=== PATIENT | female | born 1980 | race Caucasian/White ===

== ENCOUNTER 2017-11-25 02:29 | Emergency (ER) | payer MEDICARE, OTHER ==
[2017-11-25 02:30] VITALS: BMI 19.7
--- NOTE | 2017-11-25 03:19 | C.PDOC ---
History Of Present Illness 37 year old female is brought to the ED by EMS for a psych evaluation. Patient has a flight of ideas while in the ED, patient makes disconnected statements like " I have genital warts" , " I need a hydraulic barker operator" , and starts asking incoherent questions " are you a licensed physician by the sate ?" . Patient appears to be paranoid, uncooperative with further history taking. Patient is only speaking in low monotone voice denies current auditory, visual hallucinations, SI/HI. Patient states she wishes to leave. Chief Complaint (Nursing): Psychiatric Evaluation History Per: Patient History/Exam Limitations: clinical condition Onset/Duration Of Symptoms: Days Current Symptoms Are (Timing): Still Present Suicide/Self Injury Attempted (Context): None Modifying Factor(s): None Severity: None Associated Symptoms: Paranoia. denies: Depression, Suicidal Thoughts, Suicidal Plan Recent travel outside of the [place]: No Additional History Per: Patient Past Medical History Reviewed: Historical Data, Nursing Documentation, Vital Signs Vital Signs: Last Vital Signs Temp 98.1 F 11/26/17 00:10 Pulse 93 H 11/26/17 00:10 Resp 18 11/26/17 00:10 BP 104/66 11/26/17 00:10 Pulse Ox 97 11/26/17 00:10 - Medical History PMH: No Chronic Diseases Surgical History: No Surg Hx Family History: States: Unknown Family Hx - Social History Hx Alcohol Use: No Hx Substance Use: Yes - Immunization History Hx Tetanus Toxoid Vaccination: No Hx Influenza Vaccination: No Hx Pneumococcal Vaccination: No Review Of Systems Review Of Systems: ROS cannot be obtained secondary to pt's inabilty to answer questions. Physical Exam - Physical Exam Appears: Non-toxic, Other (bizarre affect) Skin: Normal Color, Warm, Dry Head: Atraumatic, Normacephalic Eye(s): bilateral: Normal Inspection Neck: Normal ROM, Supple Chest: Deformity Cardiovascular: Rhythm Regular, No Murmur Respiratory: Normal Breath Sounds, No Rales, No Rhonchi, No Wheezing Gastrointestinal/Abdominal: Soft, No Tenderness, No Guarding, No Rebound Neurological/Psych: No Oriented x3 (unable to assess due to patients lack of cooperation ) Gait: Unable To Assess Additional Physical Exam Comments: Patient was not cooperative with further examination ED Course And Treatment - Laboratory Results Result Diagrams: 11/25/17 04:11 04/16/18 04:11 O2 Sat by Pulse Oximetry: 99 (On RA) Pulse Ox Interpretation: Normal Medical Decision Making Medical Decision Making: Impression: Altered mental status Plan: * EKG * Labs * Ativan 1 mg IM * Geodon 10 mg IM * UA Disposition - Disposition Disposition: OTHER INSTITUTION Disposition Time: 04:45 Condition: FAIR Forms: [facility] (Korean) - Clinical Impression Clinical Impression: Schizophrenia, Acute psychosis - Scribe Statement The provider has reviewed the documentation as recorded by the Scribe True Tracey All medical record entries made by the Scribe were at my direction and personally dictated by me. I have reviewed the chart and agree that the record accurately reflects my personal performance of the history, physical exam, medical decision making, and the department course for this patient. I have also personally directed, reviewed, and agree with the discharge instructions and disposition.
[2017-11-25 04:19] LABS: BASO # 0.1 K/uL (0.0-0.2); BASO % 0.7 % (0.0-2.0); EOS # 0.1 K/uL (0.0-0.7); EOS % 1.4 % (0.0-4.0); HEMOGLOBIN 13.9 g/dL (11.0-16.0); LYMPH # 2.3 K/uL (1.0-4.3); LYMPH % 22.7 % (20.0-40.0); MEAN CORPUSCULAR HEMOGLOBIN 34.2 pg (27.0-31.0); MEAN CORPUSCULAR HGB CONC 34.9 g/dL (33.0-37.0); MEAN PLATELET VOLUME 7.7 fL (7.2-11.7); MONO # 0.4 K/uL (0.0-0.8); MONO % 4.3 % (0.0-10.0); NEUT # 7.3 K/uL (1.8-7.0); NEUT % 70.9 % (50.0-75.0); RBC 4.07 Mil/uL (3.80-5.20); RED CELL DISTRIBUTION WIDTH 14.8 % (11.5-14.5); WHITE BLOOD COUNT 10.2 K/uL (4.8-10.8)
[2017-11-25 04:35] LABS: ACETAMINOPHEN < 10.0 ug/mL (10.0-30.0); ALB/GLOB RATIO 1.2 (1.0-2.1); ALBUMIN 4.1 g/dL (3.5-5.0); ALT/SGPT 18 U/L (9-52); AST/SGOT 26 U/L (14-36); BLOOD UREA NITROGEN 10 mg/dL (7-17); CALCIUM 9.2 mg/dl (8.6-10.4); GFR AFRICAN-AMERICAN > 60; GFR NON-AFRICAN AMERICAN > 60; SALICYLATE < 1.0 mg/dL 1
--- NOTE | 2017-11-25 20:11 | PCM.PSYCH ---
Initial Psychiatric Evaluation - Initial Psychiatric Evaluation Chief Complaint (in patient's own words): "I came for menstrual pain, I am held here for nothing!" History of Present Illness and Precipitating Events: Pt is seen, chart reviewed and case discussed The patient is a very poor historian. She was inconsistent, vague and irritable. She also had very poor insight. She is a 37-year-old -[place] female, single with no child and she claims she lives alone but has no job. She was brought in by EMS as she was bizarre, paranoid, delusional, grandiose, talking to herself and combative. She is still paranoid and bizarre but not agitated. She denies all psych symptoms but at the same time she is very evasive and guarded. She looks odd, is thought disordered and paranoid. She denies drug/alcohol use Past psych history: She admits to having been hospitalized "once long time ago" Medical problems: Denies Family psych history: Denies Past Psychiatric History - Past Psychiatric History Previous Treatment History: Inpatient Pertinent Medical Hx (Current Medical&Sleep Prob, Allergies): Allergies Allergy/AdvReac Type Severity Reaction Status Date / Time Penicillins Allergy Verified 11/25/17 03:11 No Known Home Med 11/25/17 Review of Systems - Neurological Neurological: UNREMARKABLE - Psychiatric Psychiatric: Abnormal Sleep Pattern, Anxiety, Difficulty Concentrating, Hallucinations (likely), Irritability, Mood Swings, Paranoia. absent: Homicidal Ideation, Suicidal Ideation Mental Status Examination - Personal Presentation Personal Presentation: Looks stated age (but odd an disheveled, poorly related) - Affect Affect: Blunted - Motor Activity Motor Activity: Psychomotor Agitation (less now) - Reliability in Providing Information Reliability in Providing Information: Poor, due to alteration in thoughts - Speech Speech: Disorganized - Mood Mood: Other (irate) - Formal Thought Process Formal Thought Process: Delusions, Paranoia, Loosening of associations - Cognitive Functions Orientation: Person, Place, Time Sensorium: Alert Attention/Concentration: Easily distracted Abstract Thinking: [place] Estimate of Intelligence: Average Judgement: Imparied, as evidence by: Poor judgement Memory: Recent impaired, as evidence by: Inability to recall events of the day, Remote impaired as evidenced by: Inability to recall sig life events - Risk Risk: Diminished functioning - Limitations Limitations: Living alone DSM 5 DX - DSM 5 DSM 5 Diagnosis: Schizoaffective d/o - bipolar type (pressured, grandiose, agitated, not sleeping, paranoid) r/o schizophrenia, acute exacerbation - Recommended/Plan of Treatment Treatment Recommendations and Plan of Treatment: Consider Risperidone prn lela doherty ativan [facility] [place] screening 33 min
[2017-11-26 11:03] LABS: HCG,QUALITATIVE URINE NEGATIVE (NEGATIVE)
[2017-11-26 11:06] LABS: SQUAMOUS EPITHIAL 2 /hpf (0-5); URINE BILIRUBIN NEGATIVE (NEGATIVE); URINE BLOOD 3+ (NEGATIVE); URINE CLARITY Hazy (Clear); URINE COLOR Straw (YELLOW); URINE GLUCOSE (UA) NORMAL (Normal); URINE LEUKOCYTE ESTERASE NEG Leu/uL (Negative); URINE PROTEIN 1+ mg/dL (NEGATIVE); URINE UROBILINOGEN NORMAL mg/dL (0.2-1.0)
[2017-11-26 11:23] LABS: BARBITURATES, UR NEGATIVE (NEGATIVE); BENZODIAZEPINES, UR NEGATIVE (NEGATIVE); OPIATES, UR NEGATIVE (NEGATIVE); PHENCYCLIDINE, UR NEGATIVE (NEGATIVE)
--- NOTE | 2017-11-26 12:34 | CARD ---
APPROVED REPORT EKG Measurement Heart [id number] <Conclusion> Normal sinus rhythm Normal ECG
--- NOTE | 2017-11-26 13:13 | RAD ---
HISTORY: Chest pain. COMPARISON: No prior. FINDINGS: LUNGS: No active pulmonary disease. PLEURA: No significant pleural effusion identified, no pneumothorax apparent. CARDIOVASCULAR: Normal. OSSEOUS STRUCTURES: No significant abnormalities. VISUALIZED UPPER ABDOMEN: Normal. OTHER FINDINGS: Incompletely visualized thoracolumbar S-shaped scoliosis. IMPRESSION: No active disease.
[2017-11-26 23:45] VITALS: TEMP 98.5
--- NOTE | 2017-11-27 08:35 | PCM.PYCHPN ---
Psychiatric Progress Note - Psychiatric Progress Note Patient seen today, length of contact: 16 min Patient Chief Complaint: "I only have menstrual pain" Problems Identified/Issues Discussed: Seen again, chart reviewed. Joshdal started but not interested as she doesn't believe she has any mental illness; "It was in the past" she claims. Odd, religiously preoccupied, paranoid and grandiose. TP is also somewhat disorganized and pressured at times. Affect blunted and odd. Insight and judgment are low. Support given Awaiting [place] [facility] [place] Medication Change: Yes (risperdal) Medical Record Reviewed: Yes Mental Status Examination - Cognitive Function Orientation: Person, Place, Time Memory: Impaired Attention: Poor Concentration: Poor Association: Loose Fund of Knowledge: Poor - Mood Mood: Other (irate) - Affect Affect: Blunted - Speech Speech: Appropriate - Formal Thought Process Formal Thought Process: Delusions, Paranoia, Loosening of associations - Suicidal Ideation Suicidal Ideation: No - Homicidal Ideation Homicidal Ideation: No Goal/Treatment Plan - Goal/Treatment Plan Need for Continued Stay: Discharge may exacerbated symptoms, Severe functional impairment Progress Toward Problem(s) and Goals/Treatment Plan: Suggest Risperidone prn lela doherty ativan [facility] [place] screening done, awaiting transfer
[2017-11-27 21:05] VITALS: BP 103/73; PULSE 88; RESP 20; O2SAT 99
--- NOTE | 2017-11-27 22:36 | PCM.PYCHPN ---
Psychiatric Progress Note - Psychiatric Progress Note Patient seen today, length of contact: 30 min Patient Chief Complaint: "I am a [place] citizen, I don't take medications" Problems Identified/Issues Discussed: Seen, chart reviewed and case discussed several times PC done b/c she might go to another clinic, not [facility], but she ended up getting accepted by [facility] and left She is seen earlier today and was clinically same: psychotic, no insight, uncooperative, irate, paranoid, very odd, bizarre even. She would be a risk to self and perhaps others if not treated. Refusing risperdal Medication Change: No Medical Record Reviewed: Yes Mental Status Examination - Cognitive Function Orientation: Person, Place, Time Memory: Impaired Attention: Poor Concentration: Poor Association: Loose Fund of Knowledge: Poor - Mood Mood: Other (irate) - Affect Affect: Blunted - Speech Speech: Appropriate - Formal Thought Process Formal Thought Process: Delusions, Paranoia, Loosening of associations - Suicidal Ideation Suicidal Ideation: No - Homicidal Ideation Homicidal Ideation: No Goal/Treatment Plan - Goal/Treatment Plan Need for Continued Stay: Discharge may exacerbated symptoms, Severe functional impairment Progress Toward Problem(s) and Goals/Treatment Plan: Risperidone recommended but she refused prn haldol, cogentin, ativan [facility] transfer
== END 2017-11-27 21:40 | disposition short-term general hospital (02) ==
LOC: C.ER 02:29
DX: F25.0 Schizoaffective disorder, bipolar type (principal)
CPT/HCPCS: 80053; 81001; 84703; 85025; 93005; 96372; 99285; G0480; J2060; J3486